=== PATIENT | female | born 1980 | race Caucasian/White ===

== ENCOUNTER 2018-06-12 09:49 | Emergency (ER) | payer OTHER ==
[~2018-06-12] VITALS: Ht 157.5 cm; Wt 89.0 kg
[2018-06-12 09:53] VITALS: Ht 157.5 cm; Wt 89.0 kg
[2018-06-12 11:30] VITALS: BP 120/71
== END 2018-06-12 11:30 | disposition home or self-care (01) ==
LOC: EDBD 09:49 → ED 09:49
DX: R51 Headache (principal)
CPT/HCPCS: J1885